=== PATIENT | female | born 1970 | race Caucasian/White ===

== ENCOUNTER 2017-08-25 11:14 | Observation (INO) | payer SELFPAY ==
[2017-08-25 11:19] VITALS: BMI 36.6
[2017-08-25] MEDS ORDERED: ASPIRIN 81 MG CHEWTAB ONE (11:30)
[2017-08-25] MEDS ORDERED: NITROSTAT SL PRN (11:32)
--- NOTE | 2017-08-25 11:34 | DR.GENAD ---
HPI - PCP Primary Care Physician: NFD - Complaint/Symptoms Chief Complaint Doctors Comments: Patient states that she was taking a shower and felt sever sharp chest pain associated with shortness of breath. She came to the ED for evaluatioon. She admits to have a minor heart attack two years. Patient reorts that the pain went through to her back. She is on no heart medication . Chief Complaint:: PATIENT STATED SHE WAS IN THE SHOWER AND FELLS LIKE SOMETHING GRABED HER HEART AND SHORT OF BREATH. - Source History Provided: Patient - Mode of Arrival Mode of Arrival: Ambulatory - Timing Onset of Chief Complaint: 08/25/17 PMH - PMH Past Medical History: Yes Past Medical History: Hypertension Past Surgical History: Yes Surgical History: , [employer]IST Surgery, Hysterectomy - Family History History of Family Medical Conditions: No - Social History Does patient currently use any type of tobacco product: Yes Have you used tobacco products in the last 12 months: Yes Type of Tobacco Use: Cigarettes How many years tobacco product used: 20 Does any household member use tobacco: No Alcohol Use: None Do you use any recreational Drugs:: No Lives With: Family Lives Where: Home - infectious screening In the last 2 months have you had wt loss of >10#?: NO Have you had fever, night sweats or hemotysis?: No Have you traveled outside the country in the last 6 months?: No Isolation: Standard ROS - Review of Systems Eyes: No Symptoms Reported ENTM: No Symptoms Reported Respiratoy: No Symptoms Reported Cardiovascular: No Symptoms Reported Gastrointestinal/Abdominal: No Symptoms Reported Genitourinary: No Symptoms Reported Neurological: No Symptoms Reported Musculoskeletal: No Symptoms Reported Integumentary: No Symptoms Reported Hematologic/Lymphatic: No Symptoms Reported Endocrine: No Symptoms Reported Psychiatric: No Symptoms Reported All Other Systems: Reviewed and Negative PE - Vital Signs Vitals: Temperature 98.3 F Pulse Rate [Right Brachial] 80 Pulse Rate 106 Respiratory Rate 18 Blood Pressure [Left Arm] 158/96 Blood Pressure 201/110 O2 Sat by Pulse Oximetry 100 - General Limitations: No Limitations General Appearance: Alert, Anxious - Head Head Exam: Normal Inspection, Atraumatic - Eyes Eye exam: Normal Appearance, PERRL, EOMI - ENT ENT Exam: Normal Exam External Ear Exam: Normal External Inspection TM/Canal Exam: Bilateral Normal Nose Exam: Normal Nose Exam Mouth Exam: Normal Inspection Throat Exam: Normal Inspection - Neck Neck Exam: Normal Inspection - Chest Chest Inspection: Normal Inspection - Respiratory Respiratory Exam: Normal Lung Sounds Bilat Respiratory Exam: Bilateral Clear to Auscultation - Cardiovascular Cardiovascular Exam: Regular Rate - Abdominal Exam Abdominal Exam: Normal Inspection Abdominal Tenderness: negative: RUQ, RLQ, LUQ, LLQ, Epigastrium, Suprapubic, Diffuse, Mild, Moderate, Severe, Other - Back Back Exam: Full ROM - Neurologic Neurological Exam: Alert, Oriented X3, CN II-XII Intact - Psychiatric Psychiatric Exam: Normal Affect - Skin Skin Exam: Warm, Dry Course - Reevaluation 1st: Unchanged - Consultation Called: 12:00 (Dr Salmeron retunred fay stated that patient is haviing some kind of BBB, hold treatment at this time.) ROR - Labs Reviewed Result Diagrams: 08/25/17 11:35 08/25/17 11:35 Laboratory: WBC 9.2 X10^3/uL (3.6-10.0) 08/25/17 11:35 RBC 5.07 X10^6/uL (3.5-5.4) 08/25/17 11:35 Hgb 14.4 g/dL (12.0-16.0) 08/25/17 11:35 Hct 41.9 % (36.0-47.0) 08/25/17 11:35 MCV 82.6 fL (80.0-100.0) 08/25/17 11:35 MCH 28.3 pg (27.0-34.0) 08/25/17 11:35 MCHC 34.3 g/dL (33.0-35.0) 08/25/17 11:35 RDW 14.1 % (11.6-16.5) 08/25/17 11:35 Plt Count 293 X10^3/uL (150.0-450.0) 08/25/17 11:35 MPV 8.0 fL (7.4-11.0) 08/25/17 11:35 Neut % 70.8 % (42.0-75.0) 08/25/17 11:35 Lymph % 21.0 % (21.0-51.0) 08/25/17 11:35 Dane % 6.0 % (0.0-13.0) 08/25/17 11:35 Eos % 1.6 % (0.9-2.9) 08/25/17 11:35 Baso % 0.6 % (0.2-1.0) 08/25/17 11:35 Neut # 6.5 x10^3/uL (2.2-4.8) H 08/25/17 11:35 Lymph # 1.9 X10^3/uL (1.3-2.9) 08/25/17 11:35 Dane # 0.5 x10^3/uL (0.3-0.8) 08/25/17 11:35 Eos # 0.1 x10^3/uL (0.0-0.2) 08/25/17 11:35 Baso # 0.1 X10^3/uL (0.0-0.1) 08/25/17 11:35 Absolute Nucleated RBC 0.1 /100WBC 08/25/17 11:35 INR Target Range - 08/25/17 11:35 INR 0.95 (0.8-1.3) 08/25/17 11:35 D-Dimer 359 ng/mL (0-400) 08/25/17 11:35 Sodium 138 mmol/L (136-145) 08/25/17 11:35 Corrected Sodium TNP 08/25/17 11:35 Potassium 4.0 mmol/L (3.5-5.1) 08/25/17 11:35 Chloride 106 mmol/L (98-107) 08/25/17 11:35 Carbon Dioxide 24.6 mmol/L (21-32) 08/25/17 11:35 BUN 10 mg/dL (7-18) 08/25/17 11:35 Creatinine 0.68 mg/dL (0.55-1.02) 08/25/17 11:35 Est GFR (MDRD) Af Amer > 60 (>60) 08/25/17 11:35 Est GFR (MDRD) Non-Af > 60 (>60) 08/25/17 11:35 Glucose 96 mg/dL (65-99) 08/25/17 11:35 Calcium 9.0 mg/dL (8.5-10.1) 08/25/17 11:35 Corrected Calcium TNP 08/25/17 11:35 Magnesium 1.8 mg/dL (1.7-2.9) 08/25/17 11:35 Total Bilirubin 0.40 mg/dL (0.2-1.0) 08/25/17 11:35 AST 26 Units/L (15-37) 08/25/17 11:35 ALT 42 Units/L (12-78) 08/25/17 11:35 Alkaline Phosphatase 96 Units/L (46-116) 08/25/17 11:35 Creatine Kinase 43 Units/L (26-192) 08/25/17 11:35 CK-MB (CK-2) < 1.0 ng/mL (0-4.0) 08/25/17 11:35 CK/CKMB % Calc 2.3 % (<4) 08/25/17 11:35 Troponin I < 0.02 ng/mL (0-1.5) 08/25/17 11:35 B-Natriuretic Peptide 96.8 pg/mL (0-79) H 08/25/17 11:35 Total Protein 7.7 g/dL (6.4-8.2) 08/25/17 11:35 Albumin 3.4 g/dL (3.4-5.0) 08/25/17 11:35 Globulin 4.3 g/dL (2.5-4.5) 08/25/17 11:35 Albumin/Globulin Ratio 0.8 Ratio (1.1-2.1) L 08/25/17 11:35 - XRAY XRAY Interpreted by: Self (chest: cardiomegaly) - Diagnosis Discharge Problem: Chest pain Qualifiers: Chest pain type: chest pain on breathing Qualified Code(s): R07.1 - Chest pain on breathing; R07.81 - Pleurodynia - Discharge Plan Condition: Stable - Follow ups/Referrals Follow ups/Referrals: NFD,None [Primary Care Provider] - 3 days - Instructions
[2017-08-25] MEDS: ASPIRIN PO SCH (11:38)
[2017-08-25] MEDS ORDERED: BRILINTA PO STA (11:50)
[2017-08-25 11:52] LABS: BASOPHILS # (AUTO) 0.1 X10^3/uL (0.0-0.1); BASOPHILS % (AUTO) 0.6 % (0.2-1.0); EOSINOPHILS # (AUTO) 0.1 x10^3/uL (0.0-0.2); EOSINOPHILS % (AUTO) 1.6 % (0.9-2.9); HEMATOCRIT 41.9 % (36.0-47.0); HEMOGLOBIN 14.4 g/dL (12.0-16.0); LYMPHOCYTES # (AUTO) 1.9 X10^3/uL (1.3-2.9); MEAN CORPUSCULAR HEMOGLOBIN 28.3 pg (27.0-34.0); MEAN CORPUSCULAR HGB CONC 34.3 g/dL (33.0-35.0); MEAN CORPUSCULAR VOLUME 82.6 fL (80.0-100.0); MONOCYTES # (AUTO) 0.5 x10^3/uL (0.3-0.8); NEUTROPHILS # (AUTO) 6.5 x10^3/uL (2.2-4.8); NEUTROPHILS % (AUTO) 70.8 % (42.0-75.0); PLATELET COUNT 293 X10^3/uL (150.0-450.0); RED BLOOD COUNT 5.07 X10^6/uL (3.5-5.4); RED CELL DISTRIBUTION WIDTH 14.1 % (11.6-16.5); WHITE BLOOD COUNT 9.2 X10^3/uL (3.6-10.0)
[2017-08-25] MEDS ORDERED: HEPARIN SODIUM INJ 5000 UNITS ONE (11:52)
[2017-08-25] MEDS ORDERED: HEPARIN SODIUM IN D5W 25,000 UNITS/500 ML BAG IV ONE ×2 (11:54→11:55)
[2017-08-25] MEDS ORDERED: PLAVIX PO SCH (12:00)
[2017-08-25] MEDS: NS 1000 ML 1,000 ML IV SCH (12:02)
[2017-08-25] MEDS ORDERED: HEPARIN SODIUM INJ 5000 UNITS IVP ONE (12:05)
[2017-08-25 12:12] LABS: BLOOD UREA NITROGEN 10 mg/dL (7-18); CARBON DIOXIDE 24.6 mmol/L (21-32); CHLORIDE 106 mmol/L (98-107); CREATININE 0.68 mg/dL (0.55-1.02); SODIUM 138 mmol/L (136-145); TROPONIN I < 0.02 ng/mL (0-1.5); eGFR BLACK RACES > 60 (>60); eGFR NON BLACK RACES > 60 (>60)
[2017-08-25 12:16] LABS: ALANINE AMINOTRANSFERASE 42 Units/L (12-78); ALBUMIN 3.4 g/dL (3.4-5.0); ALKALINE PHOSPHATASE 96 Units/L (46-116); ASPARTATE AMINO TRANSFERASE 26 Units/L (15-37); CKMB % 2.3 % (<4); CREATINE KINASE 43 Units/L (26-192); CREATINE KINASE MB < 1.0 ng/mL (0-4.0); MAGNESIUM 1.8 mg/dL (1.7-2.9); TOTAL PROTEIN 7.7 g/dL (6.4-8.2)
[2017-08-25] MEDS ORDERED: DUONEB 0.5 MG/3 MG NEB ONE (13:02)
[2017-08-25] MEDS ORDERED: MORPHINE SULFATE INJ 4 MG IVP PRN (13:48)
[2017-08-25] MEDS ORDERED: ZOFRAN INJ 4 MG VIAL IVP ONE (13:48)
[2017-08-25] MEDS ORDERED: FLUVIRIN IM ONE (16:39)
[2017-08-25] MEDS ORDERED: PREVNAR 13 IM ONE (16:39)
[2017-08-25 17:38] LABS: CKMB % 2.4 % (<4); CREATINE KINASE 41 Units/L (26-192); CREATINE KINASE MB < 1.0 ng/mL (0-4.0); TROPONIN I 0.04 ng/mL (0-1.5)
[2017-08-25 17:56] LABS: BILIRUBIN,URINE NEGATIVE (NEGATIVE); BLOOD/HEMOGLOBIN,URINE 1+ (NEGATIVE); GLUCOSE, URINE NEGATIVE (NEGATIVE); KETONES,URINE NEGATIVE (NEGATIVE); LEUKOCYTE ESTERASE ,URINE NEGATIVE (NEGATIVE); NITRITES,URINE NEGATIVE (NEGATIVE); PROTEIN,URINE NEGATIVE (NEGATIVE); UROBILINOGEN,URINE NORMAL (NORMAL)
[2017-08-25 18:08] LABS: APPEARANCE,URINE CLEAR (CLEAR); BACTERIA,URINE 1+ /HPF (NEGATIVE); COLOR,URINE YELLOW (YELLOW); SQUAMOUS EPITHELIAL CELL,UR FEW /HPF (NEGATIVE)
--- NOTE | 2017-08-25 23:20 | RAD ---
HISTORY: Chest pain, shortness of breath, coughing up blood. Study: Portable chest. Comparison: None. Findings: The trachea is midline. The cardiac silhouette is enlarged without overt signs of failure. No obvio us focal consolidation, pleural effusion, or pneumothorax. The bony thorax is unremarkable. IMPRESSION: No acute cardiopulmonary disease. Reported By:
[2017-08-26 00:07] LABS: CKMB % 2.4 % (<4); CREATINE KINASE 41 Units/L (26-192); CREATINE KINASE MB < 1.0 ng/mL (0-4.0); TROPONIN I 0.02 ng/mL (0-1.5)
[2017-08-26] MEDS: ASPIRIN PO SCH (08:18)
[2017-08-26] MEDS: NICOTINE PATCH TD SCH (12:49)
[2017-08-26] MEDS: NS 1000 ML 1,000 ML IV SCH ×3 (12:50→23:14)
[2017-08-26] MEDS ORDERED: NS 100 ML IV 100 ML IV ONE (13:11)
[2017-08-26] MEDS: PEPCID 20 MG IV PREMIX* 20 MG/50 ML BAG IV SCH ×2 (14:51→21:59)
--- NOTE | 2017-08-26 17:56 | DR.H&P ---
H&P - History & Physical for Day of: H&P Date: 08/25/17 - Chief Complaint Chief Complaint: Patient states that she was taking a shower and felt sever sharp chest pain associated with shortness of breath. She came to the ED for evaluatioon. She admits to have a minor heart attack two years. Patient reorts that the pain went through to her back. She is on no heart medication . - Allergies Allergies/Adverse Reactions: Allergies Allergy/AdvReac Type Severity Reaction Status Date / Time Penicillins Allergy Verified 08/25/17 11:15 - History of Present Illness History of Present Illness: patient is a 47-year-old white female who was at admission from the ER after presenting with chest pain. Patient states pain is like a pressure on her chest. Patient also states she had new onset of coughing of blood. Patient states he was a large amount of blood in sputum. Patient denies any previous sickness no nausea vomiting diarrhea. Patient does have a history of coronary artery disease reported per patient as well as risk factors. Patient is a smoker. Denies any GI symptoms. - Past Medical History Past Medical History: Hypertension - Past Surgical History Surgical History: , Hysterectomy - Family History Family Medical History: Cancer, [place], Hypertension - Social History Does patient currently use any type of tobacco product: Yes Have you used tobacco products in the last 12 months: Yes Type of Tobacco Use: Cigarettes How many years tobacco product used: 20 Does any household member use tobacco: No Alcohol Use: None Drug Use: None - Medications Home Medications: NK [NK] 08/25/17 [History Confirmed 08/25/17] - Review of Systems Constitutional: Weakness Eyes: No Symptoms Reported ENT: No Symptoms Reported Respiratory: Shortness of Breath, Hemoptysis Cardiovascular: Chest Pain Gastrointestinal: No Symptoms Reported Genitourinary: No Symptoms Reported Musculoskeletal: No Symptoms Reported Skin: No Symptoms Reported Neurological: No Symptoms Reported - Physical Exam Vital Signs: Temperature 99.6 F Pulse Rate [Right Brachial] 76 Pulse Rate 106 Respiratory Rate 23 Blood Pressure [Left Arm] 138/90 Blood Pressure 201/110 O2 Sat by Pulse Oximetry 94 Oriented: Normal Eyes: Normal Ear: Normal Nose: Normal Throat: Normal Respiratory: RLL Diminished, LLL Diminished Cardiovascular: Normal : Normal Auscultation: Bowel Sounds: Normal Palpation: Normal Tenderness: Normal Skin: Normal Musculoskeletal: Normal Psychiatric: Normal Speech Pattern: Clear, Appropriate - Assessment/Plan (1) Chest pain Qualifiers: Chest pain type: chest pain on breathing Qualified Code(s): R07.1 - Chest pain on breathing; R07.81 - Pleurodynia Status: Acute Plan: admit ICU, serial cardiac enzymes, serial EKGs, chest x-ray, blood pressure and lipid control, respiratory therapy. (2) Dyspnea Status: Acute
[2017-08-27 08:05] LABS: BASOPHILS # (AUTO) 0.1 X10^3/uL (0.0-0.1); BASOPHILS % (AUTO) 1.1 % (0.2-1.0); EOSINOPHILS # (AUTO) 0.2 x10^3/uL (0.0-0.2); EOSINOPHILS % (AUTO) 3.4 % (0.9-2.9); HEMATOCRIT 36.9 % (36.0-47.0); HEMOGLOBIN 12.5 g/dL (12.0-16.0); LYMPHOCYTES # (AUTO) 1.8 X10^3/uL (1.3-2.9); LYMPHOCYTES % (AUTO) 24.5 % (21.0-51.0); MEAN CORPUSCULAR HEMOGLOBIN 28.1 pg (27.0-34.0); MEAN CORPUSCULAR VOLUME 82.7 fL (80.0-100.0); MEAN PLATELET VOLUME 8.1 fL (7.4-11.0); MONOCYTES # (AUTO) 0.5 x10^3/uL (0.3-0.8); MONOCYTES % (AUTO) 6.7 % (0.0-13.0); NEUTROPHILS # (AUTO) 4.7 x10^3/uL (2.2-4.8); NEUTROPHILS % (AUTO) 64.3 % (42.0-75.0); PLATELET COUNT 195 X10^3/uL (150.0-450.0); RED BLOOD COUNT 4.46 X10^6/uL (3.5-5.4); RED CELL DISTRIBUTION WIDTH 13.8 % (11.6-16.5); WHITE BLOOD COUNT 7.3 X10^3/uL (3.6-10.0)
[2017-08-27 08:24] LABS: ALANINE AMINOTRANSFERASE 34 Units/L (12-78); ALKALINE PHOSPHATASE 84 Units/L (46-116); ASPARTATE AMINO TRANSFERASE 20 Units/L (15-37); BLOOD UREA NITROGEN 10 mg/dL (7-18); CALCIUM 8.6 mg/dL (8.5-10.1); CARBON DIOXIDE 26.6 mmol/L (21-32); CHLORIDE 108 mmol/L (98-107); CKMB % 3.1 % (<4); COR CA(FOR HYPOALB) 9.4 mg/dL (8.5-10.1); CREATINE KINASE 32 Units/L (26-192); CREATINE KINASE MB < 1.0 ng/mL (0-4.0); CREATININE 0.64 mg/dL (0.55-1.02); SODIUM 140 mmol/L (136-145); TOTAL PROTEIN 6.7 g/dL (6.4-8.2); TROPONIN I < 0.02 ng/mL (0-1.5); eGFR BLACK RACES > 60 (>60); eGFR NON BLACK RACES > 60 (>60)
[2017-08-27] MEDS: PEPCID 20 MG IV PREMIX* 20 MG/50 ML BAG IV SCH (09:21)
[2017-08-27] MEDS: NICOTINE PATCH TD SCH (09:21)
[2017-08-27] MEDS: ASPIRIN PO SCH (09:21)
[2017-08-27] MEDS: NS 1000 ML 1,000 ML IV SCH (11:15)
[2017-08-27] MEDS ORDERED: FLUVIRIN IM ONE (12:16)
[2017-08-27 12:50] VITALS: BP 140/76
== END 2017-08-27 13:05 | disposition home or self-care (01) ==
LOC: ER 11:29 → ICU 13:40
PROVIDERS: ADMIT Internal Medicine; ATTEND Internal Medicine
PROC: 3E0234Z Introduction of Serum, Toxoid and Vaccine into Muscle, Percutaneous Approach (ICD-10-PCS; principal; 2017-08-27)
DX: R07.1 Chest pain on breathing (principal); R07.81 Pleurodynia; R06.02 Shortness of breath; R04.2 Hemoptysis; R94.31 Abnormal electrocardiogram [ECG] [EKG]; I10 Essential (primary) hypertension; I25.10 Atherosclerotic heart disease of native coronary artery without angina pectoris; R06.09 Other forms of dyspnea; I44.7 Left bundle-branch block, unspecified; Z72.0 Tobacco use; Z23 Encounter for immunization
CPT/HCPCS: 36415; 71010; 71275; 80053; 81001; 82550; 82553; 83735; 83880; 84484; 85025; 85378; 85610; 90686; 93005; 93010; 96365; 96367; 96374; 99284; A4222; S0028; G0378; J1644; J7620